=== PATIENT | male | born 1950 | race Caucasian/White ===

== ENCOUNTER 2019-05-06 18:45 | Emergency (ER) | payer MEDICARE, BC ==
[~2019-05-06] VITALS: Ht 167.6 cm; Wt 75.3 kg
[2019-05-06] MEDS ORDERED: DEXAMETHASONE 4 MG TABLET ONE (19:25)
[2019-05-06] MEDS ORDERED: HYDROcodone/APAP 5/325MG 1 TAB TABLET ONE (19:25)
[2019-05-06] MEDS ORDERED: HYDROcodone/APAP 5/325MG 1 TAB TABLET PO ONE (19:30)
[2019-05-06] MEDS ORDERED: DEXAMETHASONE SOD PHOS 10 MG/ML VIAL IV ONE (19:30)
[2019-05-06] MEDS ORDERED: DEXAMETHASONE SOD PHOS 10 MG/ML VIAL ONE (19:32)
[2019-05-06] MEDS ORDERED: HYDR-3165 PO (19:37)
[2019-05-06] MEDS ORDERED: PRED20TA PO (19:37)
--- NOTE | 2019-05-06 19:37 | PHYS DOC ---
Past History Past Medical History: Hypertension Past Surgical History: Other (B/L Total Shoulder Arthroplasty) Additional Past Surgical Histo: Spleenectomy, Smoking: Non-smoker Adult General Chief Complaint Chief Complaint: WRIST PAIN HPI HPI Patient is a 68 year old male who presents with right wrist pain that has been ongoing for 1 week after an episode of prolonged weed-eating. The pain was so intense last night that woke him up and has not improved today, prompting him to come to the ED today with his girlfriend. The pain has begun radiating up to his lateral epicondyle today. Pain is worse with flexion and extension of the wrist. He denies any falls, trauma or injuries. He denies any nausea, vomiting, or fevers. The pain is improved mildly by ice. He has not taken any medication for his pain. Review of Systems Review of Systems Constitutional: Denies fever or chills [] Musculoskeletal: Right wrist pain that radiates intermittently to lateral epicondyle. Neurologic: Denies headache, focal weakness or sensory changes [] Complete systems were reviewed and found to be within normal limits, except as documented in this note. Current Medications Current Medications Current Medications Medications (Trade) Dose Ordered Sig/Mary Start Time Stop Time Status Last Admin Dose Admin Acetaminophen/ Hydrocodone Bitart (Lortab 5/325) 1 tab 1X ONCE 05/06/19 19:30 05/06/19 19:31 UNV 05/06/19 19:30 1 TAB Dexamethasone (Decadron) 4 mg STK-MED ONCE 05/06/19 19:25 05/06/19 19:26 DC Dexamethasone Sodium Phosphate (Decadron) 10 mg 1X ONCE 05/06/19 19:30 05/06/19 19:31 UNV Physical Exam Physical Exam Constitutional: Well developed, well nourished, no acute distress, non-toxic appearance. [] Eyes: Conjunctiva normal, no discharge. [] Neck: Normal range of motion, no tenderness, supple, no stridor. [] Cardiovascular: Right radial pulse +2, CR < 2 sec to right finger tips Lungs & Thorax: No respiratory distress Skin: Warm, dry, no erythema, no rash. [] Extremities: Swelling of right wrist, no erythema, decreased range of motion in all directions of right wrist. Tender to palpation with light touching. Sensation intact. Radial pulses 2/4. Neurologic: Alert and oriented X 3, normal motor function, normal sensory funct ion, no focal deficits noted. [] Psychologic: Affect normal, judgement normal, mood normal. [] Current Patient Data Vital Signs Vital Signs Date Time Temp Pulse Resp B/P (MAP) Pulse Ox O2 Delivery O2 Flow Rate FiO2 05/06/19 19:30 18 98 Room Air EKG EKG [] Radiology/Procedures Radiology/Procedures PROCEDURE: WRIST 3V RIGHT Right wrist x-rays 3 views HISTORY: Right wrist injury and pain. FINDINGS: Tiny calcification at the first carpal metacarpal joint without a donor site likely dystrophic joint capsule or ligament calcification from an old injury. Additional tiny sclerotic 2 mm ossicle at the volar aspect of the proximal carpal row without discrete donor site. No definitive fracture evident. No dislocation. IMPRESSION: No acute osseous injury evident. Electronically signed by: Erasmo Villeda MD (05/06/2019 7:56 PM) [facility] Course & Med Decision Making Course & Med Decision Making Mr. Fiore is a 68-year-old male presents with 1 week of increased right wrist pain. He denies any trauma or falls. No obvious deformity. Pain noted on ROM and palpation with some mild-moderate swelling of joint. Patient was administered an ice pack and steroids to decrease inflammation. Patient given hydrocodone for intense tenderness to palpation. Three-view plain film x-ray of the wrist was obtained, which showed arthritic changes, likely leading to an inflammatory reaction. No acute fractures were identified. Gorham wrist splint provided and patient educated on RICE. Patient stable for discharge with outpatient follow-up with PCP/Orthopedics. Orthopedic referral provided. Discussed findings and plan with patient and family, who acknowledge understanding and agreement. Dragon Disclaimer Dragon Disclaimer This electronic medical record was generated, in whole or in part, using a voice recognition dictation system. Splinting Splinting : Location: right wrist Pre-Made Type: velcro (Gorham wrist splint) Pre-Proc Neuro Vasc Exam: normal Post-Proc Neuro Vasc Exam: normal, unchanged from pre-exam Departure Departure: Impression: Primary Impression: Wrist pain, acute Disposition: 01 HOME, SELF-CARE Condition: STABLE Referrals: WES JOHNS MD (PCP) WES MARTINEZ MD Patient Instructions: RICE - Routine Care for Injuries, [id number], Wrist Pain, [id number] Scripts Hydrocodone Bit/Acetaminophen (NORCO 5-325 TABLET) 1 Each Tablet 0.5-1 TAB PO Q6HRS PRN for PAIN, #10 TAB Prov: RAZA GRUBER DO 05/06/19 Prednisone (PREDNISONE) 20 Mg Tablet 2 TAB PO DAILY for Arthralgia, #8 TAB Start this prescription tomorrow, 05/07/19 Prov: RAZA GRUBER DO 05/06/19 Problem Qualifiers Primary Impression: Wrist pain, acute Laterality: right Qualified Codes: M25.531 - Pain in right wrist RAZA GRUBER DO May 06, 2019 19:37
[2019-05-06 19:52] VITALS: BP 147/81
--- NOTE | 2019-05-06 19:58 | RAD ---
Right wrist x-rays 3 views HISTORY: Right wrist injury and pain. FINDINGS: Tiny calcification at the first carpal metacarpal joint without a donor site likely dystrophic joint capsule or ligament calcification from an old injury. Additional tiny sclerotic 2 mm ossicle at the volar aspect of the proximal carpal row without discrete donor site. No definitive fracture evident. No dislocation. IMPRESSION: No acute osseous injury evident. Electronically signed by: Erasmo Villeda MD (05/06/2019 7:56 PM) [facility]
== END 2019-05-06 19:55 | disposition home or self-care (01) ==
LOC: ER 18:45
DX: M25.531 Pain in right wrist (principal); R22.41 Localized swelling, mass and lump, right lower limb; I10 Essential (primary) hypertension
CPT/HCPCS: 29125; 73110; 96374; 99284; J1100

== ENCOUNTER 2020-12-17 12:42 | Emergency (ER) | payer MEDICARE, BC ==
[~2020-12-17] VITALS: Ht 170.2 cm; Wt 88.6 kg
[~2020-12-17 12:42] MED LIST: HYDR-3165 PO; PRED20TA PO
[2020-12-17 12:59] VITALS: BP 137/72
[2020-12-17] MEDS ORDERED: DIPH,PERTUSS(ACELL),TET VAC/PF 0.5 ML SYRINGE. VAX IM ONE (13:15)
[2020-12-17] MEDS ORDERED: NEOMY/BACITR/POLYMYXIN OINT PACKET. TP ONE (13:15)
--- NOTE | 2020-12-17 13:23 | PHYS DOC ---
Past History Past Medical History: Hypertension Past Surgical History: Other Additional Past Surgical Histo: Spleenectomy, Smoking: Non-smoker Alcohol Use: Occasionally Drug Use: None General Adult EDM: Chief Complaint: HAND PROBLEM HPI: HPI: Patient is a 70-year-old male who presents with duration to left thumb. Patient states he was cutting potatoes when he cut his thumb. Bleeding is controlled. Denies pain. Review of Systems: Review of Systems: Constitutional: Denies fever or chills Eyes: Denies change in visual acuity HENT: Denies nasal congestion or sore throat Respiratory: Denies cough or shortness of breath Cardiovascular: Denies chest pain or edema GI: Denies abdominal pain, nausea, vomiting, bloody stools or diarrhea : Denies dysuria Musculoskeletal: Denies back pain or joint pain Integument: Wound to left thumb Neurologic: Denies headache, focal weakness or sensory changes Endocrine: Denies polyuria or polydipsia Lymphatic: Denies swollen glands Psychiatric: Denies depression or anxiety Allergies: Allergies: Allergies Coded Allergies Type Severity Reaction Last Updated Verified No Known Drug Allergies 05/06/19 No Physical Exam: PE: Constitutional: Well developed, well nourished, no acute distress, non-toxic appearance. [] HENT: Normocephalic, atraumatic, bilateral external ears normal, oropharynx moist, no oral exudates, nose normal. [] Eyes: PERRLA, EOMI, conjunctiva normal, no discharge. [] Neck: Normal range of motion, no tenderness, supple, no stridor. [] Cardiovascular:Heart rate regular rhythm, no murmur [] Lungs & Thorax: Bilateral breath sounds clear to auscultation [] Abdomen: Bowel sounds normal, soft, no tenderness, no masses, no pulsatile masses. [] Skin: Warm, dry, no erythema, no rash. [] Back: No tenderness, no CVA tenderness. [] Extremities: No tenderness, no cyanosis, no clubbing, ROM intact, no edema. [] Neurologic: Alert and oriented X 3, normal motor function, normal sensory function, no focal deficits noted. [] Psychologic: Affect normal, judgement normal, mood normal. [] EKG: EKG: [] Radiology/Procedures: Radiology/Procedures: [] Heart Score: Risk Factors: Risk Factors: DM, Current or recent (<one month) smoker, HTN, HLP, family history of CAD, obesity. Risk Scores: Score 0 - 3: 2.5% MACE over next 6 weeks - Discharge Home Score 4 - 6: 20.3% MACE over next 6 weeks - Admit for Clinical Observation Score 7 - 10: 72.7% MACE over next 6 weeks - Early Invasive Strategies Course & Med Decision Making: Course & Med Decision Making Pertinent Labs and Imaging studies reviewed. (See chart for details) []Patient is a 70-year-old male who presents with duration to left thumb. Patie nt states he was cutting potatoes when he cut his thumb. Bleeding is controlled. Denies pain. Patient cut tip of left thumb. No sutures needed. Wound was cleaned, tetanus given, triple antibiotic ointment and dressing applied. Dragon Disclaimer: Dragon Disclaimer: This electronic medical record was generated, in whole or in part, using a voice recognition dictation system. Departure Departure: Impression: Primary Impression: Laceration Disposition: 01 DC HOME SELF CARE/HOMELESS Condition: GOOD Referrals: WES JOHNS MD (PCP) Patient Instructions: Laceration Care, Adult Additional Instructions: EMERGENCY DEPARTMENT GENERAL DISCHARGE INSTRUCTIONS Thank you for coming to [facility] (ED) today and trusting us with you care. We trust that you had a positivie experience in our Emergency Department. If you wish to speak to the department management, you may call the director at [phone]. YOUR FOLLOW UP INSTRUCTIONS ARE FOLLOWS: 1. Do you have a private Doctor? If you do not have a private doctor, please ask for a resource list of physicians or clinics that may be able to assist you with follow up care. 2. The Emergency Physician has interpreted your x-rays. The X-Ray specialist will also review them. If there is a change in the findings, you will be notified in 48 hours when at all possible. 3. A lab test or culture has been done, your results will be reviewed and you will be notified if you need a change in treatment. ADDITIONAL INSTRUCTIONS AND INFORMATION: 1. Your care today has been supervised by a physician who is specially trained in emergency care. Many problems require more than one evaluation for a complete diagnosis and treatment. We recommend that you schedule your follow up appointment as recommended to ensure complete treatment of you illness or injury. If you are unable to obtain follow up care and continue to have a problem, or if your condition worsens, we recommend that you return to the ED. 2. We are not able to safely determine your condition over the phone nor are we able to give sound medical advice over the phone. For these safety reasons, if you call for medical advice we will ask you to come to the ED for further evaluation. 3. If you have any questions regarding these discharge instructions please call the ED at [phone]. SAFETY INFORMATION: In the interest of safety, wellness, and injury prevention; we encourage you to wear your sealbelt, if you smoke; quite smoking, and we encourage family to use a protective helmet for bicycling and other sporting events that present an increased risk for head injury. IF YOUR SYMPTOMS WORSEN OR NEW SYMPTOMS DEVELOP, OR YOU HAVE CONCERNS ABOUT YOUR CONDITION; OR IF YOUR CONDITION WORSENS WHILE YOU ARE WAITING FOR YOUR FOLLOW UP APPOINTMENT; EITHER CONTACT YOUR PRIMARY CARE DOCTOR, THE PHYSICIAN WHOSE NAME AND NUMBER YOU WERE GIVEN, OR RETURN TO THE ED IMMEDIATELY. ATA TAMAYO APRN Dec 17, 2020 13:23
== END 2020-12-17 13:26 | disposition home or self-care (01) ==
LOC: ER 12:42
DX: S61.012A Laceration without foreign body of left thumb without damage to nail, initial encounter (principal); I10 Essential (primary) hypertension; W26.0XXA Contact with knife, initial encounter; Y93.89 Activity, other specified; Y92.89 Other specified places as the place of occurrence of the external cause; Y99.8 Other external cause status
CPT/HCPCS: 90471; 90715; 99283